=== PATIENT | female | born 1990 | race Caucasian/White ===

== ENCOUNTER 2016-05-23 10:32 | Emergency (ER) | payer BC ==
[~2016-05-23] VITALS: Ht 154.9 cm; Wt 86.0 kg
[~2016-05-23 10:32] MED LIST: ACET500C5 PO; CYCL-319 PO; DICY10CA60 PO; FAMO-18 PO; HYDR-3498 PO; IBUP-1542 PO; LOPE2CAP PO; NITR-58 PO; ONDA4TAB35 PO; ONDA4TAB8 PO; TRAM50TA2 PO
[2016-05-23 10:36] VITALS: Ht 154.9 cm; Wt 86.0 kg
[2016-05-23] MEDS ORDERED: ONDANSETRON (ODT) 4 MG TAB ODT STA (12:05)
[2016-05-23] MEDS ORDERED: HYDROCODONE/APAP (5/325) TAB PO ONE (12:30)
[2016-05-23 12:47] LABS: ALBUMIN 3.8 g/dl (3.3-4.9)
[2016-05-23 12:48] LABS: POTASSIUM 4.2 mmol/L (3.5-5.1)
[2016-05-23 12:49] LABS: ADD UMIC YES; URINE BILIRUBIN (Dip) NEGATIVE (NEGATIVE); URINE BLOOD (Dip) TRACE (NEGATIVE); URINE COLOR LT. YELLOW (YELLOW); URINE GLUCOSE (Dip) NEGATIVE (NEGATIVE); URINE KETONES (Dip) NEGATIVE (NEGATIVE); URINE LEUKOCYTE ESTERASE (Dip) NEGATIVE (NEGATIVE); URINE NITRITE (Dip) NEGATIVE (NEGATIVE); URINE TOTAL PROTEIN (Dip) TRACE (NEGATIVE); URINE UROBILINOGEN (Dip) 0.2 E.U./dL (0.1-1.0)
[2016-05-23 12:50] LABS: ALBUMIN/GLOBULIN RATIO 1.08; BILIRUBIN,INDIRECT 0.1 mg/dl (0-1.1); BILIRUBIN,TOTAL 0.1 mg/dl (0.2-1.3); CREATININE 0.53 mg/dl (0.44-1.00); TOTAL PROTEIN 7.3 g/dl (6.1-8.1)
[2016-05-23 12:51] LABS: CALCIUM 8.7 mg/dl (8.4-10.2)
[2016-05-23 12:59] LABS: HEMATOCRIT 34.2 % (37.0-47.0); HEMOGLOBIN 10.7 g/dl (12.0-16.0); MEAN CORPUSCULAR HEMOGLOBIN 25.7 pg (29.0-33.0); RED BLOOD COUNT 4.17 10^6/ul (4.20-5.40); WHITE BLOOD COUNT 8.8 10^3/ul (4.8-10.8)
[2016-05-23 13:00] LABS: BASOPHILS % 0.6 % (0.0-2.0); EOSINOPHILS % 3.3 % (0.0-7.0); LYMPHOCYTES % 26.1 % (15.0-51.0); MEAN CORPUSCULAR HGB CONC 31.3 g/dl (32.0-37.0); MEAN PLATELET VOLUME 10.9 fl (7.4-10.4); MONOCYTES % 6.7 % (0.0-11.0); NEUTROPHILS % 62.7 % (39.0-77.0); PLATELET COUNT 280 10^3/UL (140-440); RED CELL DISTRIBUTION WIDTH 15.2 % (11.5-14.5)
[2016-05-23 13:01] LABS: BASOPHIL # 0.1 10^3/ul (0.0-0.1); EOSINOPHILS # 0.3 10^3/ul (0.0-0.5); LYMPHOCYTES # 2.3 10^3/ul (0.8-2.9); MONOCYTE # 0.6 10^3/ul (0.3-0.9); NEUTROPHIL # 5.5 10^3/ul (1.6-7.5)
[2016-05-23 13:11] LABS: MUCUS,URINE FEW; SQUAMOUS EPITHELIAL CELL,UR FEW; URINE RBCS 0-2 /HPF (0)
--- NOTE | 2016-05-23 13:20 | RADRPT ---
PROCEDURE: US Abdomen. CLINICAL INDICATION: Abdominal pain TECHNIQUE: Multiple real-time images were acquired of the patient's right upper quadrant utilizing a high resolution transducer. The images were reviewed on a high-resolution PACS workstation. COMPARISON: A 116 FINDINGS: The liver demonstrates normal echogenicity and size and no focal lesions are seen. The liver measure s 15.3 cm in size. Gallstones are seen. There is no pericholecystic fluid. The gallbladder wall dana ures 4 mm in size. No intrahepatic biliary dilatation is seen. The common bile duct measures 5.4 m m in maximal dimension. The visualized portions of the pancreas are unremarkable. No free fluid is identified. The right kidney is of normal size, and demonstrate normal echogenicity and morphology. The right k idney measures 11 x 4.80 cm. There are is no dilatation of the right collecting system. There are no perinephric fluid collections. There are no areas of increased echogenicity to suggest nephrolit hiasis. IMPRESSION: Cholelithiasis with mild gallbladder wall thickening again seen. RPTAT: HPNM Physician Elías Date Time Electronically viewed and signed by Physician Elías on 05/23/2016 13:20 /
[2016-05-23] MEDS ORDERED: HYDR-906 PO (13:33)
--- NOTE | 2016-05-23 13:41 | ERD ---
ER Documentation Chief Complaint Date/Time DATE: 05/23/16 TIME: 13:39 Chief Complaint pt bib self with c/o abd pain hx gallstones HPI Patient is a 25-year-old female who has a history of gallstones complaining of epigastric pain that has been on and off for 2 days. Pain is worse after eating. She admits to nausea but no vomiting. Pain is 8 out of 10 and in the epigastric region. Last menstrual period was April 24. Denies any urinary symptoms including dysuria, hematuria, or increased urinary frequency. Denies fever. She has not taken any medications for this at home. ROS All systems reviewed and are negative except as per history of present illness. Medications Home Meds Active Scripts Hydrocodone/Acetaminophen ([place] 5-325 Tablet) 1 Each Tablet, 1 TAB PO Q6H Y for PAIN, #20 TAB Prov:JYOTI MAYS PA-C 05/23/16 Acetaminophen* (Tylophen*) 500 Mg Capsule, 1 CAP PO Q6H Y for PAIN AND OR ELEVATED TEMP, #20 CAP Prov:JASMINA TIAN PA-C 11/18/15 Loperamide Hcl* (Imodium*) 2 Mg Capsule, 2 MG PO .AFTER EA LOOSE BM Y for DIARRHEA, #8 TAB Prov:JASMINA TIAN PA-C 11/18/15 Ondansetron Hcl* (Zofran*) 4 Mg Tablet, 4 MG PO Q6H for NAUSEA AND/OR VOMITING, #20 TAB Prov:JASMINA TIAN PA-C 11/18/15 Hydrocodone Bit-Acetaminophen* ([place]*) 5-325 Mg Tab, 1 TAB PO Q6 Y for PAIN, # 10 TAB Prov:PROJASMINA HUFF PA-C 11/18/15 Famotidine* (Pepcid*) 20 Mg Tablet, 20 MG PO BID for 14 Days, TAB Prov:JASMINA TIAN PA-C 10/05/15 Ondansetron Hcl* (Zofran*) 4 Mg Tablet, 4 MG PO Q6H for NAUSEA AND/OR VOMITING, #20 TAB Prov:JASMINA TIAN PA-C 10/05/15 Tramadol HCl (Tramadol HCl) 50 Mg Tablet, 50 MG PO Q6 Y for PAIN, #20 TAB Prov:JYOTI MAYS PA-C 09/11/15 Ibuprofen* (Motrin*) 600 Mg Tab, 600 MG PO Q6H Y for PAIN AND OR ELEVATED TEMP, #30 TAB Prov:JYOTI MAYS PA-C 09/11/15 Cyclobenzaprine Hcl* (Cyclobenzaprine Hcl*) 10 Mg Tablet, 10 MG PO QHS, #20 TAB Prov:JYOTI MAYS PA-C 09/11/15 Dicyclomine Hcl* (Bentyl*) 10 Mg Capsule, 10 MG PO QID, #14 CAP Prov:NAHOMY SALGUERO PA-C 09/05/15 Ondansetron Hcl* (Zofran* ODT) 4 mg -ODT Tab.disper, 4 MG PO Q6 Y for NAUSEA AND /OR VOMITING, #10 TAB Prov:NAHOMY SALGUERO PA-C 09/05/15 Nitrofurantoin Monohyd Macrocr* (Macrobid*) 100 Mg Capsr, 100 MG PO BID for 5 Days, CAP Prov:PARKER CHI NP 05/21/15 Allergies Allergies: Coded Allergies: No Known Allergy (Unverified , 07/10/14) PMhx/Soc Medical and Surgical Hx: pt denies Medical Hx History of Surgery: Yes (Appy) Anesthesia Reaction: No Hx Neurological Disorder: No Hx Respiratory Disorders: No Hx Cardiac Disorders: No Hx Psychiatric Problems: No Hx Miscellaneous Medical Probl: Yes (GERD) Hx Alcohol Use: No Hx Substance Use: No Hx Tobacco Use: No Smoking Status: Never smoker FmHx Family History: No diabetes Physical Exam Vitals Vital Signs Date Time Temp Pulse Resp B/P Pulse Ox O2 Delivery O2 Flow Rate FiO2 05/23/16 10:36 97.4 64 18 122/60 100 Physical Exam General: well developed, well nourished, alert, nontoxic, no distress Head: normocephalic, atraumatic Eyes: PERRL, normal conjunctiva Neck: Supple, nontender, no lymphadenopathy, no midline tenderness Respiratory: Clear to auscaultation bilaterally, speaks in full sentences, no use of accesory muscles or labored breathing, no rales, ronchi, or wheezing Cardiovascular: RRR, No murmurs GI: soft, non tender, non distended, negative murphys sign, negative mcburneys point tenderness, no cva tenderness bilaterally, no rebound or guarding Result Diagram: 05/23/16 1214 05/23/16 1214 Results 24 hrs Laboratory Tests Test 05/23/16 12:14 05/23/16 12:23 Alanine Aminotransferase (ALT/SGPT) 46IU/L Albumin 3.8g/dl Albumin/Globulin Ratio 1.08 Alkaline Phosphatase 99IU/L Anion Gap 15 Aspartate Amino Transf (AST/SGOT) 20IU/L Basophils # 0.110^3/ul Basophils % 0.6% Blood Urea Nitrogen 9mg/dl Calcium Level 8.7mg/dl Carbon Dioxide Level 27mmol/L Chloride Level 106mmol/L Creatinine 0.53mg/dl Direct Bilirubin 0.00mg/dl Eosinophils # 0.310^3/ul Eosinophils % 3.3% Globulin 3.50g/dl Glucose Level 88mg/dl Hematocrit 34.2% Hemoglobin 10.7g/dl Indirect Bilirubin 0.1mg/dl Lipase 68U/L Lymphocytes # 2.310^3/ul Lymphocytes % 26.1% Mean Corpuscular Hemoglobin 25.7pg Mean Corpuscular Hemoglobin Concent 31.3g/dl Mean Corpuscular Volume 82.0fl Mean Platelet Volume 10.9fl Monocytes # 0.610^3/ul Monocytes % 6.7% Neutrophils # 5.510^3/ul Neutrophils % 62.7% Nucleated Red Blood Cells # 0.010^3/ul Nucleated Red Blood Cells % 0.0/100WBC Platelet Count 56513^3/UL Potassium Level 4.2mmol/L Red Blood Count 4.1710^6/ul Red Cell Distribution Width 15.2% Sodium Level 144mmol/L Total Bilirubin 0.1mg/dl Total Protein 7.3g/dl White Blood Count 8.810^3/ul Urine Bilirubin NEGATIVE Urine Clarity CLEAR Urine Color LT. YELLOW Urine Glucose NEGATIVE% Urine Hemoglobin TRACE Urine Ketones NEGATIVE Urine Leukocyte Esterase NEGATIVE Urine Microscopic RBC 0-2/HPF Urine Microscopic WBC NONE SEEN/HPF Urine Mucus FEW Urine Nitrite NEGATIVE Urine Specific [place] >=1.030 Urine Squamous Epithelial Cells FEW Urine Total Protein TRACE Urine Urobilinogen 0.2 E.U./dL Urine pH 5.5 Current Medications Medications (Trade) Dose Ordered Sig/Norma Route PRN Reason Start Time Stop Time Status Last Admin Dose Admin Acetaminophen/ Hydrocodone Bitart ([place] (5/325)) 1 tab ONCE ONCE PO 05/23/16 12:30 05/23/16 12:31 DC 05/23/16 12:22 Ondansetron HCl (Zofran Odt) 4 mg ONCE STAT ODT 05/23/16 12:05 05/23/16 12:07 DC 05/23/16 12:22 Procedures/MDM Patient presents with epigastric pain. She has a history of gallstones. She has no tenderness over her gallbladder today however given her history I will check. Her labs are unremarkable. She has no white blood cell count, no change in liver enzymes. Ultrasound shows cholelithiasis with mild gallbladder wall thickening. She is well-appearing in no distress. She has O insurance and I will give her referrals to general surgery for outpatient management as well as prescription for pain medication and copy of labs and ultrasound report. Recommended this patient follow up with her primary care doctor within 48 hours or return to the emergency room for any worsening of symptoms. However this time I do believe there is suitable for outpatient management. I answered all their questions and they agreed with the plan and were discharged home. Departure Diagnosis: Primary Impression: Biliary colic Condition: Stable Patient Instructions: Biliary Colic With Gallstone (Confirmed) Referrals: CHITO KAY MD,TORO MCDONNELL,JAME HECK,RAFAEL BAXTER,MIKA Whipple M.D. Additional Instructions: Call your primary care doctor TOMORROW for an appointment during the next 1-2 days.See the doctor sooner or return here if your condition worsens before your appointment time. JYOTI MAYS PA-C May 23, 2016 13:41
== END 2016-05-23 14:14 | disposition home or self-care (01) ==
LOC: FTE 10:32
DX: K80.20 Calculus of gallbladder without cholecystitis without obstruction (principal); R11.0 Nausea
CPT/HCPCS: 36415; 76705; 80053; 81001; 81003; 83690; 85025

== ENCOUNTER 2016-08-26 14:45 | Emergency (ER) | payer SELFPAY ==
[~2016-08-26] VITALS: Ht 160 cm; Wt 84.3 kg
[~2016-08-26 14:45] MED LIST changes: +HYDR-906 PO
[2016-08-26 14:49] VITALS: Ht 160 cm; Wt 84.3 kg
[2016-08-26] MEDS ORDERED: ONDA4TAB14 PO (15:11)
[2016-08-26] MEDS ORDERED: ONDA8TAB14 PO (15:12)
--- NOTE | 2016-08-26 15:18 | ERD ---
ER Documentation Chief Complaint Date/Time DATE: 08/26/16 TIME: 15:16 Chief Complaint vomiting and diarrhea since last night HPI This is a 26-year-old female presenting to the emergency department complaining of vomiting and diarrhea since last night Patient states that her kids recently had the same illness a few days ago. Patient denies any fevers. She admits to having mild generalized abdominal pain after she vomited. Patient states that she was able to tolerate Pedialyte without vomiting today. She denies any hematemesis, melena or hematochezia. She has not taken any other medications for ROS All systems reviewed and are negative except as per history of present illness. Medications Home Meds Active Scripts Ondansetron (Ondansetron Odt) 8 Mg Tab.rapdis, 8 MG PO Q6H Y for NAUSEA AND/OR VOMITING, #14 TAB Prov:JOSE ALBERTO PICKETT PA-C 08/26/16 Hydrocodone/Acetaminophen ([place] 5-325 Tablet) 1 Each Tablet, 1 TAB PO Q6H Y for PAIN, #20 TAB Prov:JYOTI MAYS PA-C 05/23/16 Acetaminophen* (Tylophen*) 500 Mg Capsule, 1 CAP PO Q6H Y for PAIN AND OR ELEVATED TEMP, #20 CAP Prov:JASMINA TIAN PA-C 11/18/15 Loperamide Hcl* (Imodium*) 2 Mg Capsule, 2 MG PO .AFTER EA LOOSE BM Y for DIARRHEA, #8 TAB Prov:JASMINA TIAN PA-C 11/18/15 Ondansetron Hcl* (Zofran*) 4 Mg Tablet, 4 MG PO Q6H for NAUSEA AND/OR VOMITING, #20 TAB Prov:JASMINA TIAN PA-C 11/18/15 Hydrocodone Bit-Acetaminophen* ([place]*) 5-325 Mg Tab, 1 TAB PO Q6 Y for PAIN, # 10 TAB Prov:JASMINA TIAN PA-C 11/18/15 Famotidine* (Pepcid*) 20 Mg Tablet, 20 MG PO BID for 14 Days, TAB Prov:JASMINA TIAN PA-C 10/05/15 Ondansetron Hcl* (Zofran*) 4 Mg Tablet, 4 MG PO Q6H for NAUSEA AND/OR VOMITING, #20 TAB Prov:JASMINA TIAN PA-C 10/05/15 Tramadol HCl (Tramadol HCl) 50 Mg Tablet, 50 MG PO Q6 Y for PAIN, #20 TAB Prov:JYOTI MAYS PA-C 09/11/15 Ibuprofen* (Motrin*) 600 Mg Tab, 600 MG PO Q6H Y for PAIN AND OR ELEVATED TEMP, #30 TAB Prov:JYOTI MAYS PA-C 09/11/15 Cyclobenzaprine Hcl* (Cyclobenzaprine Hcl*) 10 Mg Tablet, 10 MG PO QHS, #20 TAB Prov:JYOTI MAYS PA-C 09/11/15 Dicyclomine Hcl* (Bentyl*) 10 Mg Capsule, 10 MG PO QID, #14 CAP Prov:NAHOMY SALGUERO PA-C 09/05/15 Ondansetron Hcl* (Zofran* ODT) 4 mg -ODT Tab.disper, 4 MG PO Q6 Y for NAUSEA AND /OR VOMITING, #10 TAB Prov:NAHOMY SALGUERO PA-C 09/05/15 Nitrofurantoin Monohyd Macrocr* (Macrobid*) 100 Mg Capsr, 100 MG PO BID for 5 Days, CAP Prov:PARKER CHI NP 05/21/15 Allergies Allergies: Coded Allergies: No Known Allergy (Unverified , 07/10/14) PMhx/Soc History of Surgery: Yes (Appy) Anesthesia Reaction: No Hx Neurological Disorder: No Hx Respiratory Disorders: No Hx Cardiac Disorders: No Hx Psychiatric Problems: No Hx Miscellaneous Medical Probl: Yes (GERD) Hx Alcohol Use: No Hx Substance Use: No Hx Tobacco Use: No Physical Exam Vitals Vital Signs Date Time Temp Pulse Resp B/P Pulse Ox O2 Delivery O2 Flow Rate FiO2 08/26/16 14:49 98.0 96 20 114/67 99 Physical Exam GENERAL: well-developed/well-nourished, in no apparent distress, non-toxic appearing HENT: NC/AT, moist mucous membranes EYES: Conjunctiva normal NECK: Supple, no lymphadenopathy PULM: CTA bilaterally, no rales, rhonchi, or wheezing heard CV: Normal S1S2, RRR, good capillary refill GI: Soft, non-distended, non-tender to palpation Normal bowel sounds, no masses or organomegaly felt on exam No gross peritonitis, no bruits Negative Rovsing, negative [place], negative McBurney's point, Negative CVAT BACK: No masses EXT: No clubbing, cyanosis, or edema NEURO: Alert and Orientated SKIN: Intact, normal turgor PSYCH: Normal mood and mentation Procedures/MDM This is a 26-year-old female patient with vomiting and diarrhea,likely due to viral gastroenteritis. Low suspicion for pseudomembranous colitis, diverticulitis, appendicitis, cholecystitis, pancreatitis, or other abdominal emergencies or acute cardiopulmonary conditions due to physical examination. Patient was drinking Pedialyte without any vomiting in the past few hours. Patient appears well, she has stable vital signs and she appears healthy. Patient is hemodynamically stable for discharge for home. Prescription Zofran was given. Discussed to increase fluids. Discussed to return to the ED if not improving as expected or for any worsening conditions. Patient understood and agreed with this plan. Departure Diagnosis: Primary Impression: Nausea, vomiting, and diarrhea Condition: Stable Patient Instructions: Self-Care for Vomiting and Diarrhea, Diet, Vomiting Or Diarrhea [6Yr-Adult], Gastroenteritis, Viral (6Y-Adult) Additional Instructions: FOLLOW UP WITH YOUR PRIMARY CARE PHYSICIAN TOMORROW.Return to this facility if you are not improving as expected. Take all medicines as directed. Return to this facility if you are not improving as expected. JOSE ALBERTO PICKETT PA-C August 26, 2016 15:18
== END 2016-08-26 15:15 | disposition home or self-care (01) ==
LOC: E/R 14:45
DX: R11.2 Nausea with vomiting, unspecified (principal); R19.7 Diarrhea, unspecified
CPT/HCPCS: 99283

== ENCOUNTER 2018-08-25 17:51 | Emergency (ER) | payer SELFPAY ==
[~2018-08-25 17:51] MED LIST changes: -CYCL-319 PO; +CYCL10TA7 PO; +DICY10CA40 PO; -DICY10CA60 PO; -FAMO-18 PO; +FAMO-96 PO; +HYDR-4011 PO; -HYDR-906 PO; +ONDA8TAB14 PO
== END 2018-08-25 22:39 | disposition left against medical advice (07) ==
LOC: E/R 17:51
DX: Z53.21 Procedure and treatment not carried out due to patient leaving prior to being seen by health care provider (principal)